=== PATIENT | male | born 1955 | race Caucasian/White ===

== ENCOUNTER 2017-01-06 18:34 | Emergency (ER) | payer SELFPAY ==
[~2017-01-06] VITALS: Ht 162.6 cm; Wt 69.0 kg
[2017-01-06 18:43] VITALS: Ht 162.6 cm; Wt 69.0 kg
[2017-01-06] MEDS ORDERED: ONDANSETRON 4 MG INJ IV STA (22:24)
[2017-01-06] MEDS ORDERED: morphine 4 MG/ML VIAL IV STA (22:24)
[2017-01-06] MEDS ORDERED: SOD CHLORIDE 0.9% 500 ML IV STA (22:24)
--- NOTE | 2017-01-06 23:36 | RADRPT ---
PROCEDURE: Portable chest x-ray. CLINICAL INDICATION: Abdominal pain. TECHNIQUE: Portable AP view of the chest. COMPARISON: None. FINDINGS: There is mild scarring or atelectasis at the left lung base. No pulmonary edema or conolidation is i dentified. The cardiac silhouette is magnified. No pleural effusion is seen. There is no pneumoth orax. There is no pneumoperitoneum. IMPRESSION: 1. No evidence of acute cardiopulmonary disease. 2. No pneumoperitoneum. RPTAT: HTAR .Edgar Resendez MD, Date Time Electronically viewed and signed by .Edgar Resendez MD, on 01/06/2017 23:36 .R/
[2017-01-06 23:38] LABS: BASOPHILS % 0.3 % (0.0-2.0); EOSINOPHILS % 0.3 % (0.0-7.0); HEMATOCRIT 46.7 % (42.0-52.0); HEMOGLOBIN 16.6 g/dl (14.0-18.0); LYMPHOCYTES % 7.2 % (15.0-51.0); MEAN CORPUSCULAR HEMOGLOBIN 32.4 pg (29.0-33.0); MEAN CORPUSCULAR HGB CONC 35.5 g/dl (32.0-37.0); MEAN CORPUSCULAR VOLUME 91.2 fl (82.0-101.0); MEAN PLATELET VOLUME 10.4 fl (7.4-10.4); MONOCYTE # 1.2 10^3/ul (0.3-0.9); MONOCYTES % 8.3 % (0.0-11.0); NEUTROPHILS % 83.3 % (39.0-77.0); PLATELET COUNT 244 10^3/UL (140-415); RED BLOOD COUNT 5.12 10^6/ul (4.70-6.10); RED CELL DISTRIBUTION WIDTH 12.8 % (11.5-14.5); WHITE BLOOD COUNT 14.4 10^3/ul (4.8-10.8)
[2017-01-06 23:42] LABS: ADD UMIC YES; UR ASCORBIC ACID NEGATIVE (NEGATIVE); UR BILIRUBIN (Dip) NEGATIVE (NEGATIVE); UR BLOOD (Dip) 1+ mg/dL (NEGATIVE); UR CLARITY CLEAR (CLEAR); UR COLOR YELLOW (YELLOW); UR GLUCOSE (Dip) NEGATIVE (NEGATIVE); UR KETONES (Dip) TRACE mg/dL (NEGATIVE); UR LEUKOCYTE ESTERASE (Dip) NEGATIVE Leu/ul (NEGATIVE); UR NITRITE (Dip) NEGATIVE (NEGATIVE); UR RBC 4 /HPF (0-5); UR SPECIFIC GRAVITY (Dip) 1.017 (1.003-1.030); UR TOTAL PROTEIN (Dip) NEGATIVE (NEGATIVE); UR UROBILINOGEN (Dip) NEGATIVE (NEGATIVE)
[2017-01-07 00:05] LABS: ALANINE AMINOTRANSFERASE 43 IU/L (13-69); ALBUMIN 3.6 g/dl (3.3-4.9); ALBUMIN/GLOBULIN RATIO 1.05; ALKALINE PHOSPHATASE 91 IU/L (42-121); ANION GAP 18 (8-16); ASPARTATE AMINO TRANSFERASE 31 IU/L (15-46); BILIRUBIN,INDIRECT 0.5 mg/dl (0-1.1); BILIRUBIN,TOTAL 0.5 mg/dl (0.2-1.3); BLOOD UREA NITROGEN 14 mg/dl (7-20); CALCIUM 8.5 mg/dl (8.4-10.2); CARBON DIOXIDE 30 mmol/L (21-31); CHLORIDE 96 mmol/L (97-110); CREATININE 0.78 mg/dl (0.61-1.24); GLUCOSE 107 mg/dl (70-220); POTASSIUM 3.8 mmol/L (3.5-5.1); SODIUM 140 mmol/L (135-144)
[2017-01-07 00:22] LABS: TROPONIN-I < 0.012 ng/ml (0.00-0.12)
[2017-01-07] MEDS ORDERED: SOD CHLORIDE 0.9% 100 ML ONE (00:44)
[2017-01-07] MEDS ORDERED: IOHEXOL 300MG/ML 150 ML BTL ONE (00:44)
--- NOTE | 2017-01-07 01:16 | RADRPT ---
PROCEDURE: CT Abdomen and pelvis with contrast. CLINICAL INDICATION: Abdominal pain. TECHNIQUE: CT scan of the abdomen and pelvis with contrast was performed on a multi-detector high -resolution CT scanner. The patient was scanned following the uncomplicated administration of 100 c c of Omnipaque 300 intravenous contrast. Coronal and sagittal reformatted images were obtained from the axial source images. Images were reviewed on a high-resolution PACS workstation. One or more of the following dose reduction techniques were used: - Automated exposure control. - Adjustment of the mA and/or kV according to patient size. - Use of iterative reconstruction technique. Exam CTD/vol = 9.27 mGy. Total exam DLP = 581.36 mGy-cm. COMPARISON: None. FINDINGS: Evaluation of the lung bases demonstrates mild bibasilar atelectasis. There is a calcified granulom a within the left lower lobe. Abdomen: The liver is normal in size. There is no focal mass or dilatation of the biliary tree. T he gallbladder is not distended. The spleen, pancreas and bilateral adrenal glands are within patricio l limits. Bilateral kidneys are normal in size with symmetric enhancement. There is no focal mass, hydronephrosis or hydroureter. There is no retroperitoneal adenopathy. The abdominal aorta is of normal caliber with scattered atherosclerotic calcifications. There is no abnormal bowel wall thickening or distension. There is no bowel obstruction or free air . A normal appendix is identified. There are scattered diverticuli within the descending colon wit hout evidence of diverticulitis. There is no ascites. Pelvis: The bladder is unremarkable. There is a small left inguinal hernia containing fat. The pr ostate is mildly enlarged with small dystrophic calcifications. There is no significant pelvic mariya opathy or free fluid. Evaluation of the osseous structures demonstrates no suspicious lytic or blastic lesion. IMPRESSION: No acute abnormality identified within the abdomen and pelvis. Scattered colonic diverticuli without evidence of diverticulitis. Small left inguinal hernia containing fat. Mildly enlarged prostate. Mild vascular calcifications reflective of atherosclerosis. .Zhou Valdez MD, MD Date Time Electronically viewed and signed by .Zhou Valdez MD, MD on 01/07/2017 01:16 .T/
--- NOTE | 2017-01-07 02:43 | ERD ---
ER Documentation Chief Complaint Date/Time DATE: 01/07/17 TIME: 02:35 Chief Complaint diffuse abd pain x 2 days HPI This 61-year-old male with diffuse abdominal pain for 2 days. Patient says he has a history of GERD. His pain is epigastric in location with no exacerbating limiting factors. No fevers no chills. Mild nausea no vomiting. No other current complaints. ROS All systems reviewed and are negative except as per history of present illness. Medications Home Meds No Active Prescriptions or Reported Meds Allergies Allergies: Coded Allergies: No Known Allergy (Unverified , 01/06/17) PMhx/Soc Medical and Surgical Hx: pt denies Medical Hx, pt denies Surgical Hx History of Surgery: No Anesthesia Reaction: No Hx Neurological Disorder: No Hx Respiratory Disorders: No Hx Cardiac Disorders: No Hx Psychiatric Problems: No Hx Miscellaneous Medical Probl: Yes (gerd) Hx Alcohol Use: No Hx Substance Use: No Hx Tobacco Use: No Smoking Status: Never smoker Physical Exam Vitals Vital Signs Date Time Temp Pulse Resp B/P Pulse Ox O2 Delivery O2 Flow Rate FiO2 01/06/17 22:12 99.4 68 20 159/104 98 Room Air 01/06/17 18:43 99.3 68 20 180/82 98 Physical Exam Const: [] Head: Atraumatic Eyes: Normal Conjunctiva ENT: Normal External Ears, Nose and Mouth. Neck: Full range of motion..~ No meningismus. Resp: Clear to auscultation bilaterally Cardio: Regular rate and rhythm, no murmurs Abd: Soft, non tender, non distended. Normal bowel sounds Skin: No petechiae or rashes Back: No midline or flank tenderness Ext: No cyanosis, or edema Neur: Awake and alert Psych: Normal Mood and Affect Result Diagram: 01/06/17 2300 01/06/17 2300 Results 24 hrs Laboratory Tests Test 01/06/17 23:00 White Blood Count 14.410^3/ul Red Blood Count 5.1210^6/ul Hemoglobin 16.6g/dl Hematocrit 46.7% Mean Corpuscular Volume 91.2fl Mean Corpuscular Hemoglobin 32.4pg Mean Corpuscular Hemoglobin Concent 35.5g/dl Red Cell Distribution Width 12.8% Platelet Count 92427^3/UL Mean Platelet Volume 10.4fl Neutrophils % 83.3% Lymphocytes % 7.2% Monocytes % 8.3% Eosinophils % 0.3% Basophils % 0.3% Nucleated Red Blood Cells % 0.0/100WBC Neutrophils # 12.010^3/ul Lymphocytes # 1.010^3/ul Monocytes # 1.210^3/ul Eosinophils # 0.010^3/ul Basophils # 0.010^3/ul Nucleated Red Blood Cells # 0.010^3/ul Urine Color YELLOW Urine Clarity CLEAR Urine pH 6.0 Urine Specific Stem 1.017 Urine Ketones TRACEmg/dL Urine Nitrite NEGATIVEmg/dL Urine Bilirubin NEGATIVEmg/dL Urine Urobilinogen NEGATIVEmg/dL Urine Leukocyte Esterase NEGATIVELeu/ul Urine Microscopic RBC 4/HPF Urine Microscopic WBC 1/HPF Urine Hemoglobin 1+mg/dL Urine Glucose NEGATIVEmg/dL Urine Total Protein NEGATIVEmg/dl Sodium Level 140mmol/L Potassium Level 3.8mmol/L Chloride Level 96mmol/L Carbon Dioxide Level 30mmol/L Anion Gap 18 Blood Urea Nitrogen 14mg/dl Creatinine 0.78mg/dl Glucose Level 107mg/dl Calcium Level 8.5mg/dl Total Bilirubin 0.5mg/dl Direct Bilirubin 0.00mg/dl Indirect Bilirubin 0.5mg/dl Aspartate Amino Transf (AST/SGOT) 31IU/L Alanine Aminotransferase (ALT/SGPT) 43IU/L Alkaline Phosphatase 91IU/L Troponin I < 0.012ng/ml Total Protein 7.0g/dl Albumin 3.6g/dl Globulin 3.40g/dl Albumin/Globulin Ratio 1.05 Lipase 69U/L Current Medications Medications (Trade) Dose Ordered Sig/Mahesh Route PRN Reason Start Time Stop Time Status Last Admin Dose Admin Sodium Chloride (NS) 500 ml @ 500 mls/hr Q1H STAT IV 01/06/17 22:24 01/06/17 23:23 DC 01/06/17 23:22 Morphine Sulfate (morphine) 4 mg ONCE STAT IV 01/06/17 22:24 01/06/17 22:26 DC 01/06/17 23:21 Ondansetron HCl 4 mg 4 mg ONCE STAT IV 01/06/17 22:24 01/06/17 22:26 DC 01/06/17 23:21 Sodium Chloride (NS) 100 ml @ STK-MED ONCE .ROUTE 01/07/17 00:44 01/07/17 00:45 DC 01/07/17 00:57 Iohexol (Omnipaque 300mg/ ml) 150 ml STK-MED ONCE .ROUTE 01/07/17 00:44 01/07/17 00:45 DC 01/07/17 00:57 Procedures/MDM EKG: Rate/Rhythm: Normal Sinus Rhythm QRS, ST, T-waves: No changes consistent w/ acute ischemia Impression: No evidence of ischemia or arrhythmia Chest X-ray 1V Interpreted by me: Soft Tissue: No acute abnormalities Bones: No acute abnormalities Mediastinum/Cardiac Silhouette/Lungs: No acute abnormalities Medical decision making: This is a 61 general epigastric pain consistent with a history of GERD. This point clinically stable. Pain resolved. Patient be discharged home with Pepcid along with Carafate. Follow-up with primary care physician. Follow-up here in 8 hours for serial abdominal exams. All the results and findings discussed with patient at the bedside. Departure Diagnosis: Primary Impression: Abdominal pain Abdominal location: epigastric Qualified Code: R10.13 - Epigastric pain Condition: Stable ZACHARY MEJIA Jan 07, 2017 02:43
[2017-01-07] MEDS ORDERED: FAMO-96 PO (02:44)
[2017-01-07] MEDS ORDERED: SUCR1TAB56 PO (02:44)
[2017-01-07] MEDS ORDERED: HC30CR25 TOP (02:44)
[2017-01-07 02:49] VITALS: BP 140/78; PULSE 68; RESP 20; TEMP 98.1
== END 2017-01-07 02:57 | disposition home or self-care (01) ==
LOC: E/R 18:34
DX: R10.13 Epigastric pain (principal); R11.0 Nausea
CPT/HCPCS: 71010; 74177; 80053; 81001; 83690; 84484; 85025; 87086; 93005; J2270; J2405; J7040; Q9967; 36415; 96374; 96375